=== PATIENT | female | born 1990 | race Caucasian/White ===

== ENCOUNTER 2017-03-18 12:05 | Emergency (ER) | payer MEDICAID ==
[2017-03-18 13:10] LABS: BLOOD UREA NITROGEN 11 mg/dL (7-17); CALCIUM 9.7 mg/dL (8.4-10.2); CHLORIDE 103 mmol/L (98-107); CREATININE 0.8 mg/dL (0.5-1.0); EST GLOMERULAR FILTRATION RATE > 60 mL/min; GLUCOSE 101 mg/dL (70-100); SODIUM 143 mmol/L (137-145)
[2017-03-18 13:11] LABS: BASOPHIL# 0.1 X 10^3uL (0.0-0.1); BASOPHILS 0.7 % (0.0-2.0); EOSINOPHILS# 0.2 X 10^3uL (0.0-0.4); HEMATOCRIT 44.5 % (36.0-48.0); HEMOGLOBIN 15.6 g/dL (12.0-16.0); LYMPHOCYTES 15.5 % (20.0-40.0); LYMPHOCYTES# 1.4 X 10^3uL (0.8-3.8); MEAN CELL VOLUME 88.3 fL (80.0-100.0); MEAN CORPUS. HGB CONCENTRATION 35.2 g/dL (32.0-36.0); MEAN CORPUSCULAR HEMOGLOBIN 31.1 pg (29.0-35.0); MEAN PLATELET VOLUME 8.1 fL (7.4-10.4); MONOCYTES 3.2 % (2.0-10.0); MONOCYTES# 0.3 X 10^3uL (0.2-1.0); NEUTROPHILS 78.6 % (54.0-75.0); NEUTROPHILS# 6.9 X 10^3uL (2.6-6.7); PLATELET COUNT 296 X 10^3uL (130-440); RED BLOOD COUNT 5.03 X 10^6uL (4.20-6.10); RED CELL DISTRIBUTION WIDTH 12.8 % (11.5-14.5); WHITE BLOOD COUNT 8.9 X 10^3uL (3.9-10.7)
[2017-03-18 13:13] LABS: ACETAMINOPHEN < 10.0 ug/mL (10.0-30.0); ETHYL ALCOHOL < 10 mg/dL (<10); SALICYLATE < 1.0 mg/dL (<20.0)
--- NOTE | 2017-03-18 13:34 | ER PHYSICIAN DOCUMENTATION ---
Physician Documentation [facility] Name:Madisyn Chatman Age:26 yrs Sex:Female :1990 Arrival Date:03/18/2017 Time:12:05 Bed4 Private MD: David Parnell Disposition: 03/18/17 13:22 Transfer ordered to [facility]. Diagnosis is Suicidal Ideations. - Reason for transfer: Specialty. - Accepting physician is Dr. Hemphill. - Condition is Fair. - Problem is new. - Symptoms are unchanged. COBRA Form completed? Yes Transfer - Mode of Transportation Ambulance HPI: 03/18 12:45 This 26 yrs old Female presents to ER via Private Vehicle with complaints of jm Suicidal Ideation. 12:45 The patient presents to the emergency department with suicide ideation, and the patient jm has a plan, to crash a car. Onset: The symptom(s)/episode began/occurred today. Past psychiatric history: Prior diagnosis: depression. Associated signs and symptoms: Pertinent positives; substance abuse, Pertinent negatives: hallucinations, homicidal ideation. Severity of symptoms: in the emergency department the symptoms are worse. The patient has not experienced similar symptoms in the past. The patient has been recently seen by a physician:. Pt w long standing psych hx w ETOH abuse, drug abuse, and anorexia/bulimia. . Historical: - Allergies: SULFA (SULFONAMIDES); - Home Meds: 1. unknown steroid cream - PMHx: DEPRESSION; bulimia; anorexia; dermatitis; - PSHx: Tonsillectomy; - Tetanus: < 10 years. - Ebola Screening: : Patient negative for fever greater than or equal to 101.5 degrees Fahrenheit, and additional compatible Ebola Virus Disease symptoms. Patient denies exposure to infectious person. Patient denies travel to an Ebola-affected area in the 21 days before illness onset. . - Immunization history: Flu Vaccine < 1 year. - Social history: Smoking status: Patient states was never smoker of tobacco. Patient uses alcohol on a daily basis. street drugs, cocaine, Patient/guardian denies using IV drugs. ROS: 12:52 Eyes: Positive for redness, swelling, known pink eye. jm 12:52 Psych: Positive for depression, alcohol dependence, suicidal ideation. 12:52 All other systems are negative. Exam: 12:53 Constitutional: The patient appears in no acute distress, alert, awake, comfortable. 12:53 Eyes: Periorbital structures: swelling, that is mild, on the left upper eyelid and left lower eyelid, Conjunctiva: injected, in the left eye. 12:53 ENT: Mouth: is normal, Voice: is normal. 12:53 Neck: Thyroid: appears normal, Trachea: is midline with no obvious abnormalities. 12:53 Cardiovascular: Rate: normal, Rhythm: regular. 12:53 Respiratory: Respirations: no acute changes, Breath sounds: are normal. 12:53 Abdomen/GI: Bowel sounds: normal, Palpation: abdomen is soft and non-tender. 12:53 Back: pain, is absent, CVA tenderness, is absent. 12:53 Musculoskeletal/extremity: Extremities: all appear grossly normal, with no appreciated pain with palpation, Weight bearing: able to fully bear weight. 12:53 Skin: Appearance: Color: pink, no rash present. 12:53 Neuro: Mentation: is normal, Memory: is normal. 12:53 Psych: Behavior/mood is pleasant, cooperative, suicidal, depressed, Affect is calm, Patient having thoughts of suicide. Plan for suicide is crash car Vital Signs: 12:19 BP 167 / 83; Pulse 89; Resp 16; Temp 98.1(O); Pulse Ox 100% on R/A; Weight 70.31 kg; lp Height 5 ft. 6 in. (167.64 cm); Pain 0/10; 12:55 BP 137 / 66 (auto/); lp 12:19 Body Mass Index 25.02 (70.31 kg, 167.64 cm) lp MDM: 12:07 Patient medically screened. 12:58 Differential diagnosis: depression, SI w plan. Data reviewed: vital signs, nurses notes, lab test result(s), and as a result, I will *Transfer Patient. Counseling: I had a detailed discussion with the patient and/or guardian regarding: the historical points, exam findings, and any diagnostic results supporting the discharge/admit diagnosis, the need to transfer to another facility, [facility] does not immediately have the required specialist. 13:21 Physician consultation: Wilfredo Hemphill was called at 13:10, was contacted at 13:10, regarding jm transfer- Dr. Hemphill has accepted. . ED course: Pt will be transferred by [facility] to [facility] ER for SI. All labs normal. . 03/18 13:12 Order name: CBC AUTO DIF, MDIF/RMOR IF IND EDIA 03/18 13:14 Order name: BASIC METABOLIC PANEL EDIA 03/18 13:14 Order name: SALICYLATE EDIA 03/18 13:14 Order name: ETHYL ALCOHOL EDIA 03/18 13:14 Order name: ACETAMINOPHEN EDIA 03/18 13:42 Order name: THYROID STIMULATING HORMONE EDIA 03/18 13:42 Order name: HCG, SERUM EDIA 03/18 13:49 Order name: URINE DRUG SCREEN, QUAL EDIA 03/18 12:20 Order name: I & O; Complete Time: 12:55 03/18 12:20 Order name: Iv Saline Lock; Complete Time: 12:55 03/18 12:20 Order name: NPO; Complete Time: 12:55 03/18 12:20 Order name: Pulse Ox Continuous; Complete Time: 12:55 03/18 12:20 Order name: Suicide Precautions; Complete Time: 12:42 Dispensed Medications: No medications were administered Signatures: Edna Mackey, RN RN David Nickerson MD MD
--- NOTE | 2017-03-18 13:34 | ER NURSING DOCUMENTATION ---
Nurse's Notes [facility] Name:Madisyn Chatman Age:26 yrs Sex:Female :1990 Arrival Date:03/18/2017 Time:12:05 Bed4 Private MD: Diagnosis:Suicidal Ideations Presentation: 03/18 12:15 Presenting complaint: Patient states: since arriving in [place] 1 week ago increasing lp depression and suicidal thoughts with a plan to crash her car. Transition of care: Home. 12:15 Acuity: NATHALIE 3 lp 12:15 Method Of Arrival: Private Vehicle lp Triage Assessment: 12:18 General: Appears distressed, Behavior is anxious, crying. Pain: Denies pain. EENT: Eyes lp with exudate noted from outer aspect of conjuctiva of left eye, iris of left eye and inner aspect of conjunctiva of left eye. Neuro: No deficits noted. Cardiovascular: No deficits noted. Respiratory: No deficits noted. GI: No deficits noted. : No deficits noted. Derm: No deficits noted. Musculoskeletal: No deficits noted. Historical: - Allergies: SULFA (SULFONAMIDES); - Home Meds: 1. unknown steroid cream - PMHx: DEPRESSION; bulimia; anorexia; dermatitis; - PSHx: Tonsillectomy; - Tetanus: < 10 years. - Ebola Screening: : Patient negative for fever greater than or equal to 101.5 degrees Fahrenheit, and additional compatible Ebola Virus Disease symptoms. Patient denies exposure to infectious person. Patient denies travel to an Ebola-affected area in the 21 days before illness onset. . - Immunization history: Flu Vaccine < 1 year. - Social history: Smoking status: Patient states was never smoker of tobacco. Patient uses alcohol on a daily basis. street drugs, cocaine, Patient/guardian denies using IV drugs. Screenin:20 Infectious Disease Risk None. Abuse screen: Denies threats or abuse. Denies injuries lp from another. Nutritional screening: No deficits noted. Suicide Risk Assessment: Suicidal Thinking Present - Yes ( 2 points), Past Attempts - No (0 points), Family History of Suicide - No (0 points), Credible Suicide Plan - Yes (3 points), Means to Kill Self Available - Yes (3 points), Has Serious Health Problem - No ( 0 points), Lives Alone - Yes (1 point), Will Contract for Safety - No (3 points), Total Suicide Risk Assessment Score: Score of 3 or Greater (Substantial risk for suicide). Patient placement close to nurses station, 1:1 sitter with patient. Assessment: 12:20 See Triage Assessment done by same RN. General: Behavior is crying. Pain: Denies pain. lp Vital Signs: 12:19 BP 167 / 83; Pulse 89; Resp 16; Temp 98.1(O); Pulse Ox 100% on R/A; Weight 70.31 kg; lp Height 5 ft. 6 in. (167.64 cm); Pain 0/10; 12:55 BP 137 / 66 (auto/); lp 12:19 Body Mass Index 25.02 (70.31 kg, 167.64 cm) lp ED Course: 12:07 Patient arrived in ED. cj 12:07 David Cheung MD is Attending Physician. corina 12:15 Edna Mackey, RN is Primary Nurse. lp 12:16 Triage completed. lp 12:[address] Cheung notified. lp 12:21 Valuables Remains with patient Patient has correct armband on for positive lp identification. Placed in gown. Bed in low position. 12:21 Door open and patient near nurses station for monitoring. lp 12:51 Inserted saline lock: 20 gauge in left forearm and blood collected. angeline Administered Medications: No medications were administered Outcome: 13:22 ER care complete, transfer ordered by . corina 13:33 Transferred: Patient will be transferred to: [facility]. Facility lp Acceptance Time: March 18, 2017 at 13:00 Patient will be transported by: [facility] [place]. Nurse and Physician Charting and Notes were sent to Accepting Facility. All tests and/or procedures with results, if applicable, were sent to accepting facility. 13:33 Condition: stable 13:33 Instructed on need for transfer 13:34 Patient left the ED. lp Signatures: Edna Mackey, RN RN David Nickerson MD MD jm Evens, Kerry, RN RN ke Jones, Carissa cj
[2017-03-18 13:41] LABS: THYROID STIMULATING HORMONE 0.78 uIU/mL (0.47-4.68)
== END 2017-03-18 13:34 | disposition short-term general hospital (02) ==
LOC: ER 12:05
DX: R45.851 Suicidal ideations (principal); F32.9 Major depressive disorder, single episode, unspecified; F10.20 Alcohol dependence, uncomplicated; H10.022 Other mucopurulent conjunctivitis, left eye; Z74.3 Need for continuous supervision
CPT/HCPCS: 80048; 80305; 80307; 80320; 80329; 84443; 84703; 85025; 99285